=== PATIENT | male | born 1975 | race African-American/Black ===

== ENCOUNTER → 2019-03-09 | Outpatient (CLI) | payer OTHER ==
[2014-10-22 21:52] VITALS: BP 132/77
--- NOTE | 2019-03-09 13:41 | RAD ---
ABDOMEN LTD History: Right upper quadrant pain for one week Comparison: None. Findings: Multiple sonographic images of the abdomen are submitted. There is no abnormality of the visualized pancreas. Right kidney measured 10.4 x 3.8 x 4.6 cm, no hydronephrosis. There is segmental visualization of the inferior vena cava. Abdominal aortic caliber is within normal limits up to 2.3 cm. Gallbladder is present without intraluminal abnormality, wall thickening, pericholecystic fluid. Common bile duct is within normal limits at 0.3 cm. Hepatic echotexture is within normal limits, no focal hepatic lesion demonstrated. Right lobe of the liver measured 15.1 cm longitudinal. Impression: 1. No significant abnormality is demonstrated. Electronically signed by: Heath Snyder MD (03/09/2019 1:38 PM) [id number]
== END | disposition home or self-care (01) ==
LOC: US 12:50
PROVIDERS: ATTEND Family Medicine
DX: K76.89 Other specified diseases of liver (principal)
CPT/HCPCS: 76705